=== PATIENT | female | born 1955 | race Caucasian/White ===

== ENCOUNTER → 2018-10-31 | Outpatient (CLI) | payer MEDICARE ==
--- NOTE | 2018-11-03 10:12 | RAD ---
EXAM: Hand,Right 3 Views CLINICAL HISTORY: M79.641. TECHNIQUE: AP, lateral and oblique images of the right hand. COMPARISON STUDY: None FINDINGS: Calcification is present within the triangular fibrocartilage. There are mild degenerative changes of the lateral carpal row and all interphalangeal joints. There are no periarticular erosions. There are degenerative changes of the first metacarpal phalangeal joint. Artifact is seen at the proximal aspect of this third proximal phalanx. No fracture or dislocation identified. IMPRESSION: 1. Mild osteoarthritic changes of the lateral carpal row, interphalangeal joints and first metacarpal phalangeal joint. Electronically signed by: Sean Garza MD 11/03/2018 10:10 AM CDT
== END ==
LOC: RAD 09:09
PROVIDERS: ATTEND Orthopaedic Surgery
DX: Z01.818 Encounter for other preprocedural examination (principal); M19.041 Primary osteoarthritis, right hand

== ENCOUNTER → 2018-12-03 | Outpatient (CLI) | payer MEDICARE ==
--- NOTE | 2018-12-03 16:33 | US ---
US THYROID CLINICAL STATEMENT: NODULE. Enlarged right lobe. Found on community screening ultrasound examination. No prior thyroid surgery or therapy. COMPARISON: None available. TECHNIQUE: Transcutaneous scanning, grayscale and Doppler modes. FINDINGS: Size right thyroid lobe: 5.1 x 3.4 x 2.6 cm Size left thyroid lobe: 4.4 x 1.2 x 0.9 cm Size isthmus: 0.19 cm Estimated total number of nodules greater than or equal to 1 cm: 1. Isthmus and left lobe heterogeneous echoes. Nodule 1: Size: 3.8 x 2.8 x 2.3 cm Location: Right Mid Composition: solid or almost completely solid: 2 points. Moderate vascularity on color Doppler. Echogenicity: hypoechoic: 2 points Shape: wider than tall: 0 points Margins: ill-defined: 0 points Echogenic foci: none: 0 points ACR Total Points: 4; ACR TI-RADS risk category: TR4 - moderately suspicious nodule. No dominant solid mass or distinct cyst in the surrounding soft tissues. No parenchymal edema or large calcifications. No overlying skin changes. Normal vascularity. IMPRESSION: 1. Nodule 1: ACR TI-RADS 2017 Category TR4. Recommend: Ultrasound-guided fine needle aspiration. Recommendations based upon [employer] Best Practice recommendations and ACR TI-RADS 2017 guidelines. Please see below*. 2. Heterogeneous echoes in the isthmus and left lobe. No cysts or nodules. Soft tissue around the thyroid gland is unremarkable. *ACR TI-RADS 2017 Recommendations: TR1: No FNA or follow up TR2: No FNA or follow up TR3: FNA if >/= 2.5 cm, follow up if 1.5 - 2.4 cm in 1, 3, and 5 years TR4: FNA if >/= 1.5 cm, follow up if 1.0 - 1.4 cm in 1, 2, 3, and 5 years TR5: FNA if >/= 1.0 cm, follow up if 0.5 - 0.9 cm every year for 5 years ACR TI-RADS recommends that no more than two nodules with the highest ACR TI-RADS total point should be biopsied and no more than four nodules should be followed. These recommendations do not apply to patients with increased risk for thyroid cancer or patients with symptomatic thyroid disease. Electronically signed by: Adam Meier MD 12/03/2018 4:30 PM CDT
--- NOTE | 2018-12-03 16:40 | US ---
Thyroid Biopsy, Image-Guided: Ultrasound CLINICAL INFORMATION: Large nodule found in the right lobe on prior community screening ultrasound examination. Confirmed on thyroid ultrasound examination prior to this procedure. TECHNIQUE: Procedure was explained to the patient with risks and benefits. The patient gave verbal and written consent. Sterile preparation draping. 1% xylocaine dermal anesthetic 9-1 mixture with sodium bicarbonate. Sterile ultrasound guidance. A total of 6 passes right lobe nodule; 3 needle samplings with a separate 1.5 inch, 25-gauge needle per sample, and 3 aspirations, with a separate 1.5 inch, 25-gauge needle/10-cc syringe set, per aspiration. Each sample was placed on a separate slide and fixed in 95% alcohol container. Saccomanno fluid drawn into aspirate needle and rinse injected into Saccomanno container. Specimens to be sent for pathologic examination at remote facility. . Patient tolerated procedure well. Biopsy #: 1 Nodule reference number based on prior diagnostic ultrasound:1 Maximum size: 3.8 cm Location: right; mid ACR TI-RADS risk category: TR4 (4-6 points) Reason for biopsy: meets ACR TI-RADS criteria Complications: None. IMPRESSION: Successful ultrasound guided fine needle aspiration of right thyroid nodule. ACR TI-RADS Risk Category TR 4 Electronically signed by: Adam Meier MD 12/03/2018 4:38 PM CDT
== END ==
LOC: US 10:57
PROVIDERS: ATTEND Family Medicine
DX: E04.1 Nontoxic single thyroid nodule (principal)

== ENCOUNTER 2018-12-05 05:19 | Day surgery (SDC) | payer BC, MEDICARE ==
[2018-12-05] MEDS ORDERED: LACTATED RINGERS 1,000 ML ONE (06:59)
[2018-12-05] MEDS ORDERED: PROPOFOL 200 MG/20 ML VIAL IV ONE (07:00)
[2018-12-05] MEDS ORDERED: LIDOCAINE 1% 10 ML VIAL INJ ONE (07:00)
[2018-12-05] MEDS ORDERED: LACTATED RINGERS 1,000 ML IVS ONE (07:46)
[2018-12-05] MEDS ORDERED: MIDAZOLAM INJ 2 MG/2 ML VIAL ONE (08:21)
[2018-12-05 08:57] VITALS: BP 114/54; TEMP 98; O2SAT 92
--- NOTE | 2018-12-05 08:59 | OP ---
DATE OF PROCEDURE: 12/05/18 PREPROCEDURE DIAGNOSIS: 1. Colorectal cancer screening. POSTPROCEDURE DIAGNOSIS: 1. Severe diverticulosis in the sigmoid colon and moderate diverticulosis in the remaining entire colon. 2. Fair bowel preparation. PROCEDURE: 1. Colonoscopy. SURGEON: Lambert Gates MD COMPLICATIONS: No immediate complications. SEDATION: The patient was sedated via IV propofol by the Anesthesia Department. CONSENT: Prior to the procedure, risks, benefits and alternatives to the therapy were discussed with the patient. The risks included bleeding, infection, perforation and . The patient agreed to the procedure and signed a consent. PREPROCEDURE ANESTHESIA ASSESSMENT: An examination revealed no contraindication to sedation. Airway examination demonstrated a Mallampati class type 2, ASA grade assessment type 2. Throughout the procedure, the patient's blood pressure, pulse and oxygen saturation were closely monitored continuously. PROCEDURE: The patient was placed in the left lateral decubitus position and a rectal examination was performed. The rectal examination was within normal limits. The Olympus colonoscope was passed in the anus, rectum, traversing the colon to the level of the cecum as identified by the appendiceal orifice. The scope was retracted and the mucosa was visualized. The entirety of the exam was performed under direct visualization. Retroflexion was performed in the rectum. Preparation quality was overall good, however, only fair visualization of the colonic mucosa in the cecum due to fair amount of semi-liquid stool. The withdrawal time was greater than 6 minutes. The patient tolerated the procedure well. FINDINGS: 1. Fair amount of semi-liquid stool was found in the cecum. Copious lavage with sterile water was performed with only fair visualization of the colonic mucosa at this level. 2. Moderate to severe khan diverticulosis. Diverticulosis was particularly severe in the sigmoid colon requiring extensive maneuvering for scope advancement. 3. Medium to large sized internal hemorrhoids were found in retroflexion in the rectum. 4. Hypertropic anal papilla. RECOMMENDATION: 1. Return the patient home. 2. Resume previous diet favoring high-fiber foods. 3. Repeat colonoscopy in the next 1 to 3 years given only fair bowel preparation. Alternatively, may obtain Cologuard test. 4. Return to referring physicians office as previously scheduled. 5. Findings were discussed with the patient and family members. #[id number] [facility] [place]
== END 2018-12-05 09:35 | disposition home or self-care (01) ==
LOC: AMB 05:19
PROVIDERS: ATTEND Internal Medicine Gastroenterology
DX: Z12.11 Encounter for screening for malignant neoplasm of colon (principal); K57.30 Diverticulosis of large intestine without perforation or abscess without bleeding; K64.8 Other hemorrhoids; K62.89 Other specified diseases of anus and rectum; E78.00 Pure hypercholesterolemia, unspecified; F32.9 Major depressive disorder, single episode, unspecified; G25.0 Essential tremor; E04.1 Nontoxic single thyroid nodule; Z79.899 Other long term (current) drug therapy
CPT/HCPCS: 00812; G0121; J2250; J3490; J7120